=== PATIENT | female | born 1990 | race Caucasian/White ===

== ENCOUNTER → 2017-03-09 | Outpatient (CLI) | payer OTHER | END | disposition home or self-care (01) | LOC: C.LAB 17:38 | PROVIDERS: ATTEND Nurse Practitioner Adult Health | DX: N30.10 Interstitial cystitis (chronic) without hematuria (principal); R30.0 Dysuria; R39.89 Other symptoms and signs involving the genitourinary system; R35.0 Frequency of micturition; R39.15 Urgency of urination ==

== ENCOUNTER → 2017-06-06 | Outpatient (CLI) | payer OTHER ==
[~2017-06-06] MED LIST: NORG1TAB67 PO
== END | disposition home or self-care (01) ==
LOC: C.LAB 15:19
PROVIDERS: ATTEND Urology
DX: N39.0 Urinary tract infection, site not specified (principal)

== ENCOUNTER → 2017-06-22 | Outpatient (CLI) | payer OTHER ==
--- NOTE | 2017-06-22 09:41 | Discharge Instructions ---
Discharge Instructions Procedure Procedure Date: Jun 22, 2017. Reason for visit: Right Breast Lump. Discharge Discharge Date: Jun 22, 2017. Discharge Diagnosis: status post breast biopsy Instructions Activity Recommendations: Additional Limitations (see below) Return to School/Work: no limitations Recommended Home Diet: No Limitations Provider Instructions: ACTIVITY RECOMMENDATIONS: * No lifting, pushing, pulling or exercising the affected side for three days. RETURN TO SCHOOL/WORK: * You may return to work/school after the procedure, but do not perform any strenuous activities for 24 to 48 hours. MEDICATIONS: * Tylenol (two 325 mg) every four to six hours if needed for mild pain (if not allergic to Tylenol). DIET: * Resume previous diet. SPECIAL CARE INSTRUCTIONS: * Keep biopsy site dry for 24 hours. May shower after 24 hours, but do not soak (bathe) incision. * May remove Tegaderm (plastic patch) tomorrow AFTER showering. * Leave the steri-strips on for one week. Allow the steri-strips to fall off by themselves. If not off after one week, you may remove them. You may place a Bandaid crosswise over the strips, if desired. * Apply ice 10 minutes on and 10 minutes off as needed. * Wear a bra at bedtime to sleep more comfortably for 2-3 days. * Your referring physician should have the results after approximately 5 to 7 business days. * Call for unusual bleeding, fever, drainage, etc or if you have any questions call during normal business hours or after hours call Dr Barlow, [phone]. FOLLOW UP VISIT: Follow-up with Referring Physician as scheduled. Deepak Erwin Recommendations: Call your doctor if: * Temperature above 101 degrees * Pain not relieved by pain medicine ordered * There is increased drainage or redness from any incision * You have any unanswered questions or concerns. Your Doctors Instructions noted above were prepared by provider Shanda Barlow. Patient Signature Section: Patient Instructions Signature Page Mary Hedrick Patient (or Guardian) Signature/Date: I have read and understand the instructions given to me by my caregivers. Caregiver/RN/Doctor Signature/Date: The above-named patient and/or guardian has received patient instructions on this date. + Original Patient Signature Page (only) stays with chart. Please make copy for patient.
--- NOTE | 2017-06-22 15:52 | MAMMOGRAPHY REPORT ---
ULTRASOUND GUIDED BIOPSY RIGHT BREAST: 06/22/2017 CLINICAL HISTORY: Right 10:00 breast mass. PATIENT CONSENT: The procedure, risks and benefits were discussed with the patient and informed writt en consent was obtained. A timeout was performed immediately prior to the procedure. PROCEDURE DESCRIPTION: With ultrasound guidance, aseptic technique, and lidocaine as the local anesth etic (1% lidocaine to anesthetize the skin and 1% lidocaine with epinephrine to anesthetize the deepe r tissues), the mass of concern in the right 10:00 breast was sampled 4 times with a 14-gauge Achieve biopsy needle. Immediately thereafter, with ultrasound guidance, aseptic technique, and lidocaine a s the local anesthetic, a metallic localizer clip was placed centrally in the mass. Direct pressure was applied to the site immediately post procedure and hemostasis was achieved. The patient tolerated the procedure without complication. She was given wound care instructions. The specimens were sent to pathology for analysis. COMPARISON: Comparison is made to exam dated: 06/22/2017 ultrasound - [facility]. IMPRESSION: ULTRASOUND GUIDED BIOPSY Ultrasound guided core needle biopsy of the right 10:00 breast mass, with clip placement. The patien t will receive pathology results from her referring provider. Shanda Barlow M.D. /:06/22/2017 09:43:00 Booking Clerk: Kim CULP)(M), [facility]
--- NOTE | 2017-06-22 15:54 | MAMMOGRAPHY REPORT ---
ULTRASOUND OF RIGHT BREAST: 06/22/2017 CLINICAL HISTORY: The patient reports a palpable right breast lump for approximately 3 weeks. COMPARISON: No prior exams were available for comparison. TECHNIQUE: Real-time targeted ultrasound of the right breast was performed. FINDINGS: Real-time, high resolution targeted ultrasound was performed of the area of the palpable l ump pointed out by the patient, in the right breast at 10:00 approximately 4 cm from the nipple. At the site of the palpable lump there is an oval circumscribed parallel hypoechoic solid mass which dileep sures 10 x 6 x 10 mm. The mass is indeterminate and ultrasound-guided core needle biopsy is recommen ded for further evaluation. IMPRESSION: ACR BI-RADS CATEGORY 4: SUSPICIOUS - FOLLOW-UP RECOMMENDED Hypoechoic 10 mm solid mass at the site of the palpable lump in the right 10:00 breast. The mass is indeterminate and ultrasound-guided core needle biopsy is recommended for further evaluation. This l ikely represents a fibroadenoma. A phone call was made to the physician's office to confirm faxed results were received. The patient was verbally notified of the results. The biopsy was performed on the same day after the ultrasound exam. Shanda Barlow M.D. /:06/22/2017 09:41:59 Wallpaper Embosser Helper: Kim CULP)(Brennan), [facility] letter sent: Abnormal 4/5 BI-RADS Code: ACR BI-RADS Category 4: Suspicious
== END | disposition home or self-care (01) ==
LOC: C.MAMM 08:35
PROVIDERS: ATTEND Nurse Practitioner Family
DX: D24.1 Benign neoplasm of right breast (principal)

== ENCOUNTER 2017-07-19 11:20 | Emergency (ER) | payer OTHER ==
[~2017-07-19] VITALS: Ht 157.5 cm; Wt 52.3 kg
[2017-07-19 11:26] VITALS: TEMP 36.9; Ht 157.5 cm; Wt 52.3 kg
[2017-07-19] MEDS ORDERED: ACETAMINOPHEN 500 MG TAB PO STA (11:35)
[2017-07-19] MEDS ORDERED: NORGTAB39 PO (12:04)
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
[2017-07-19 13:23] VITALS: BP 116/76; PULSE 64; O2SAT 98
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
== END 2017-07-19 13:42 | disposition home or self-care (01) ==
LOC: EDBD 11:20 → C.EDC 11:22
DX: S06.0X0A Concussion without loss of consciousness, initial encounter (principal); S16.1XXA Strain of muscle, fascia and tendon at neck level, initial encounter; S70.02XA Contusion of left hip, initial encounter; V87.7XXA Person injured in collision between other specified motor vehicles (traffic), initial encounter; D24.1 Benign neoplasm of right breast

== ENCOUNTER → 2017-10-06 | Outpatient (CLI) | payer OTHER ==
[~2017-10-06] MED LIST changes: -NORG1TAB67 PO; +NORGTAB39 PO
== END | disposition home or self-care (01) ==
LOC: C.LABSPEC 11:33
PROVIDERS: ATTEND Obstetrics & Gynecology
DX: Z11.3 Encounter for screening for infections with a predominantly sexual mode of transmission (principal); Z11.8 Encounter for screening for other infectious and parasitic diseases

== ENCOUNTER → 2017-10-06 | Outpatient (CLI) | payer OTHER | END | disposition home or self-care (01) | LOC: C.PAPS 12:14 | PROVIDERS: ATTEND Obstetrics & Gynecology | DX: Z01.419 Encounter for gynecological examination (general) (routine) without abnormal findings (principal) ==